=== PATIENT | female | born 1995 | race Caucasian/White ===

== ENCOUNTER 2017-04-30 16:39 | Emergency (ER) | payer BC, OTHER ==
[2017-04-30 16:52] VITALS: RESP 18; TEMP 98.6
--- NOTE | 2017-04-30 18:18 | EDPHY ---
H & P Stated Complaint: Migratory CP since Sunday Time Seen by Provider: 04/30/17 18:07 HPI/ROS: CHIEF COMPLAINT: Chest tightness, anxiety and paresthesias HISTORY OF PRESENT ILLNESS: Patient is a 21-year-old female who recently moved here from [place] who comes to the emergency department complaining of intermittent chest tightness, anxiety and palpitations. She states that these tend to last for about a minute and resolve with self calming techniques. She does not have any significant medical history. She denies shortness of breath. She does not smoke. She does not use any hormones. No recent travel or procedures. REVIEW OF SYSTEMS: Constitutional: denies: chills, fever, recent illness, recent injury EENTM: denies: blurred vision, double vision, nose congestion Respiratory: denies: cough, shortness of breath Cardiac: See HPI Gastrointestinal/Abdominal: denies: abdominal pain, diarrhea, nausea, vomiting, blood streaked stools Genitourinary: denies: dysuria, frequency, hematuria, pain Musculoskeletal: denies: joint pain, muscle pain Skin: denies: lesions, rash, jaundice, bruising Neurological: denies: headache, numbness, paresthesia, tingling, dizziness, weakness Hematologic/Lymphatic: denies: blood clots, easy bleeding, easy bruising Immunologic/allergic: denies: HIV/AIDS, transplant EXAM: GENERAL: Well-appearing, well-nourished and in no acute distress. HEAD: Atraumatic, normocephalic. EYES: Pupils equal round and reactive to light, extraocular movements intact, sclera anicteric, conjunctiva are normal. ENT: TMs normal, nares patent, oropharynx clear without exudates. Moist mucous membranes. NECK: Normal range of motion, supple without lymphadenopathy or JVD. LUNGS: Breath sounds clear to auscultation bilaterally and equal. No wheezes rales or rhonchi. HEART: Regular rate and rhythm without murmurs, rubs or gallops. ABDOMEN: Soft, nontender, normoactive bowel sounds. No guarding, no rebound. No masses appreciated. BACK: No CVA tenderness, no spinal tenderness, step-offs or deformities EXTREMITIES: Normal range of motion, no pitting or edema. No clubbing or cyanosis. NEUROLOGICAL: Cranial nerves II through XII grossly intact. Normal speech, normal gait. 5/5 strength, normal movement in all extremities, normal sensation PSYCH: Normal mood, normal affect. SKIN: Warm, dry, normal turgor, no visible rashes or lesions. Source: Patient Exam Limitations: No limitations - Personal History LMP (Females 10-55): 1-7 Days Ago Current Tetanus Diphtheria and Acellular Pertussis (TDAP): Yes - Medical/Surgical History Hx Asthma: No Hx Chronic Respiratory Disease: No Hx Diabetes: No Hx Cardiac Disease: No Hx Renal Disease: No Hx Cirrhosis: No Hx Alcoholism: No - Family History Significant Family History: No pertinent family hx - Social History Smoking Status: Current every day smoker Alcohol Use: Sober Drug Use: None Constitutional: Initial Vital Signs Temperature (C) 37 C 04/30/17 16:50 Heart Rate 80 04/30/17 16:50 Respiratory Rate 18 04/30/17 16:50 Blood Pressure 153/89 H 04/30/17 16:50 O2 Sat (%) 99 04/30/17 16:50 O2 Delivery Mode Room Air Allergies/Adverse Reactions: hydrocodone Allergy (Mild, Verified 04/30/17 16:53) GI upset Home Medications: Medication Instructions Recorded NK [No Known Home Meds] 04/30/17 Medical Decision Making - Diagnostics EKG Interpretation: An EKG obtained and was read and documented in trace view. Please see trace view for full reading and report. Sinus rhythm, no acute ischemic changes or arrhythmia ED Course/Re-evaluation: The patient is well appearing. She is young and healthy and has a normal physical exam. She feels that her symptoms are likely due to anxiety and I agree. She declined medications. We will obtain an EKG and if this is normal have her follow up with her regular physician in the next couple of days. 6:30 p.m. the patient is asking to have a blood sugar checked. Differential Diagnosis: Partial list of the Differential diagnosis considered include but were not limited to; anxiety, chest pain, palpitations and although unlikely based on the history and physical exam, I also considered ischemia, infection, PE. I discussed these differential diagnoses and the plan with the patient as well as the usual and expected course. The patient understands that the diagnosis is provisional and that in medicine we are not always correct and that further workup is often warranted. Usual and customary warnings were given. All of the patient's questions were answered. The patient was instructed to return to the emergency department should the symptoms at all worsen or return, otherwise to followup with the physician as we discussed. - Data Points Laboratory Results: 04/30/17 18:44 POC Hgb 17.0 gm/dL H gm/dL (12.6-16.3) POC Hct 50 % H % (38-47) POC Sodium 141 mEq/L mEq/L (134-144) POC Potassium 3.9 mEq/L mEq/L (3.3-5.0) POC Chloride 100 mEq/L mEq/L (97-110) POC BUN 15 mg/dL mg/dL (7-23) POC Creatinine 0.9 mg/dL mg/dL (0.6-1.0) POC Glucose 96 mg/dL mg/dL (70-100) Point of Care Test Results: 04/30/17 18:44 POC Sodium 141 POC Potassium 3.9 POC Chloride 100 POC BUN 15 POC Creatinine 0.9 POC Glucose 96 Departure - Departure Disposition: Home, Routine, Self-Care Clinical Impression: Anxiety Chest pain Qualifiers: Chest pain type: unspecified Qualified Code(s): R07.9 - Chest pain, unspecified Condition: Fair Instructions: Chest Pain (ED), Anxiety (ED) Referrals: NONE *PRIMARY CARE P,. [Primary Care Provider] - As per Instructions Ariela Ortiz MD [[facility] Primary Care Provider] - 2-3 days, call for appt.
--- NOTE | 2017-04-30 18:38 | CPEKG ---
Heart Rate: 68 RR Interval: 882 P-R Interval: 144 QRSD Interval: 80 QT Interval: 372 QTC Interval: 396 P Donaldson: 48 QRS Donaldson: 81 T Wave Donaldson: 29 EKG Severity - NORMAL ECG - EKG Impression: SINUS RHYTHM Electronically Signed By: Agustin Molina 30-Apr-2017 18:40:19
[2017-04-30 19:42] VITALS: BP 149/81; PULSE 84; O2SAT 98
== END 2017-04-30 19:42 | disposition home or self-care (01) ==
DX: R07.9 Chest pain, unspecified (principal); F41.9 Anxiety disorder, unspecified; F17.200 Nicotine dependence, unspecified, uncomplicated
CPT/HCPCS: 82947-QW

== ENCOUNTER 2017-11-12 19:31 | Emergency (ER) | payer BC, OTHER ==
--- NOTE | 2017-11-12 19:55 | EDPHY ---
H & P Stated Complaint: dehydrated Time Seen by Provider: 11/12/17 19:55 - Personal History LMP (Females 10-55): Now Current Tetanus/Diphtheria Vaccine: Yes Current Tetanus Diphtheria and Acellular Pertussis (TDAP): Yes - Medical/Surgical History Hx Asthma: No Hx Chronic Respiratory Disease: No Hx Diabetes: No Hx Cardiac Disease: No Hx Renal Disease: No Hx Cirrhosis: No Hx Alcoholism: No Hx HIV/AIDS: No Hx Splenectomy or Spleen Trauma: No - Social History Smoking Status: Current every day smoker Constitutional: Initial Vital Signs Temperature (C) 36.4 C 11/12/17 19:34 Heart Rate 74 11/12/17 19:34 Respiratory Rate 16 11/12/17 19:34 Blood Pressure 137/90 H 11/12/17 19:34 O2 Sat (%) 97 11/12/17 19:34 O2 Delivery Mode Room Air Allergies/Adverse Reactions: hydrocodone Allergy (Mild, Verified 04/30/17 16:53) GI upset Home Medications: Medication Instructions Recorded AZITHROMYCIN [Z-PACK] 250 mg PO DAILY #1 packet 11/12/17 AZITHROMYCIN [Z-PACK] 250 mg PO DAILY #1 packet 11/12/17 oxyCODONE IR [Oxycodone Ir (*)] 5 mg PO Q4-6PRN PRN #20 tab 11/12/17 Medical Decision Making - Diagnostics Imaging: I viewed and interpreted images myself ED Course/Re-evaluation: CHIEF COMPLAINT: Lightheaded, dehydrated, cough HISTORY OF PRESENT ILLNESS: The patient is a 21 y/o female arriving with her boyfriend complaining of a persistent cough for the last 3 weeks despite multiple antibiotics. She has associated nasal congestion, fever, vomiting, and general malaise. Today she started to feel lightheaded and thinks she is dehydrated. She completed a course of doxycycline then started amoxicillin 4 days ago. Recent flu swab was negative. She was also on prednisone over a week ago for back pain. She has continued to feel poor. REVIEW OF SYSTEMS: A 10 point review of systems was performed and is negative with the exception of the elements mentioned in the history of present illness. PHYSICAL EXAM: HR, BP, O2 Sat, RR. Temp noted General Appearance: Alert, well hydrated, appropriate, and non-toxic appearing. Head: Atraumatic without scalp tenderness or obvious injury Eyes: Pupils equal, round, reactive to light and accommodation, EOMI, no trauma , no injection. Ears: Clear bilaterally, no perforation, normal landmarks Nose: Atraumatic, no rhinorrhea, clear. Throat: There is no erythema or exudates, no lesions, normal tonsils, mucus membranes moist. Neck: Supple, nontender, no lymphadenopathy. Respiratory: No retractions, no distress, no wheezes, and no accessory muscle use. Coarse rhonchi throughout, decreased breath sounds on the left. Cardiovascular: Regular rate and rhythm, no murmurs, rubs, or gallops. Good capillary refill all extremities. Gastrointestinal: Abdomen is soft, nontender, non-distended, no masses, no rebound, no guarding, no peritoneal signs. Musculoskeletal: Normal active ROM of all extremities, atraumatic. Neurological: Alert, appropriate, and interactive. The patient has non-focal cranial nerves, motor, sensory, and cerebellar exam. Skin: No rashes, good turgor, no nodules on palpation. Past medical history: Denies Past surgical history: Denies Family history: Noncontributory Social history: Smoker. Employed. Boyfriend at bedside. DIAGNOSTICS/PROCEDURES/CRITICAL CARE TIME: Chest x-ray: Bronchitis DIFFERENTIAL DIAGNOSIS: The differential diagnosis for the patient's fever included but was not limited to pneumonia, urinary tract infection, viral syndrome, meningitis, and sepsis. MEDICAL DECISION MAKING: This is a normally healthy 21 y/o female who presents with a 3-week history of a cough with nasal congestion, fever, and myalgias. She has coarse rhonchi throughout all lung bustillo and decreased breath sounds on the left, which could represent a pneumonia. Plan for duo neb, 10mg IV Decadron, and chest x-ray. Chest x-ray shows bronchitis. She will be discharged with OxyIR for cough and azithromycin. Advised to discontinue amoxicillin and follow up with PCP for unimproved symptoms. She is comfortable with this plan. - Data Points Medications Given: Discontinued Medications Albuterol/Ipratropium (Duoneb) 3 ml IH EDNOW ONE Stop: 11/12/17 20:01 Last Admin: 11/12/17 20:07 Dose: 3 ml Dexamethasone (Decadron Injection) 10 mg PO EDNOW ONE Stop: 11/12/17 20:02 Last Admin: 11/12/17 20:07 Dose: 10 mg Departure - Departure Disposition: Home, Routine, Self-Care Clinical Impression: Bronchitis Condition: Good Instructions: Azithromycin (By mouth), Acute Bronchitis (ED) Additional Instructions: 1. Discontinue amoxicillin. Take azithromycin as prescribed. Be sure to complete the entire prescription. 2. Use OxyIR as prescribed as needed for pain and cough. This medication will make you drowsy. Do not use it while driving or operating machinery. 3. Follow up with your primary care provider for unimproved symptoms over the next few days. Referrals: Jenna Atkinson MD [Medical Doctor] - As per Instructions [facility],. [Clinic] - As per Instructions Prescriptions: AZITHROMYCIN [Z-PACK] 250 mg PO DAILY #1 packet AZITHROMYCIN [Z-PACK] 250 mg PO DAILY #1 packet oxyCODONE IR [Oxycodone Ir (*)] 5 mg PO Q4-6PRN PRN #20 tab PRN Reason: Cough, Severe Report Scribed for: Bradford Ayoub Report Scribed by: Asuncion Blair Date of Report: 11/12/17 Time of Report: 20:03
[2017-11-12] MEDS ORDERED: IPRATROPIUM/ALBUTEROL 3 ML DEYVIAL IH ONE (20:00)
[2017-11-12] MEDS ORDERED: DEXAMETHASONE 10 MG/ML VIAL PO ONE (20:01)
[2017-11-12] MEDS ORDERED: AZITHROMYCIN 250 MG TAB PO ONE (20:12)
[2017-11-12 20:33] VITALS: BP 148/92; PULSE 77; RESP 18; TEMP 98.4; O2SAT 94
== END 2017-11-12 20:35 | disposition home or self-care (01) ==
DX: J20.9 Acute bronchitis, unspecified (principal); F17.200 Nicotine dependence, unspecified, uncomplicated
CPT/HCPCS: J1100

== ENCOUNTER 2018-11-28 06:00 | Inpatient (IN) | payer BC, OTHER ==
[2018-11-28] MEDS ORDERED: OLIVE OIL 118 ML BTL MISC PRN (07:33)
[2018-11-28] MEDS ORDERED: IBUPROFEN 600 MG TAB PO PRN (07:33)
[2018-11-28] MEDS ORDERED: LR 1,000 ML IV PRN (07:33)
[2018-11-28] MEDS ORDERED: EPSOM SALT 454 GM TP PRN (07:33)
[2018-11-28] MEDS ORDERED: MISOPROSTOL 200 MCG TAB PR PRN (07:33)
[2018-11-28] MEDS ORDERED: LIDOCAINE 1% 300 MG/30 ML SDV SC PRN (07:33)
[2018-11-28] MEDS ORDERED: OXYTOCIN/RINGERS LACTATE 1,000 ML IV PRN (07:33)
[2018-11-28] MEDS ORDERED: PENICILLIN G POTASSIUM 5,000,000 UNIT in D5W 150 ML IV ONE (07:33)
[2018-11-28] MEDS ORDERED: LIDOCAINE 1% 300 MG/30 ML SDV ONE (07:41)
[2018-11-28] MEDS ORDERED: MISOPROSTOL 200 MCG TAB ONE (07:42)
[2018-11-28] MEDS ORDERED: TERBUTALINE SULFATE 1 MG/ML VIAL ONE (07:42)
[2018-11-28] MEDS ORDERED: OLIVE OIL 118 ML BTL ONE (07:42)
[2018-11-28] MEDS ORDERED: OXYTOCIN 10 UNIT/ML VIAL ONE (07:42)
[2018-11-28] MEDS ORDERED: AMMONIA AROMATIC 1 EACH AMP IH ONE (07:42)
[2018-11-28 08:02] LABS: PLATELET COUNT 173 10^3/uL (150-400)
[2018-11-28] MEDS ORDERED: LR 500 ML IV PRN ×2 (08:23→08:34)
[2018-11-28] MEDS ORDERED: OXYTOCIN/RINGERS LACTATE 500 ML IV SCH (09:00)
--- NOTE | 2018-11-28 11:38 | GHP ---
[f rep st] PREOP HISTORY AND PHYSICAL DATE OF ADMISSION: 11/28/2018 ADMISSION DIAGNOSES: 1. Intrauterine at 40 and 4/7 weeks' gestation. 2. Here for elective induction of labor. 3. Group beta strep positive. HISTORY OF PRESENT ILLNESS: Patient is a 22-year-old, 1, para 0, whose estimated date of confinement is 11/24/2018, consistent with an 8-week ultrasound. Patient initiated care at [facility] at 8 weeks 2 days, and she had recently moved to [place] and did temporarily moved back from [place] at 37 weeks gestation. She received the majority of her care in [place] and resumed care at [facility] at 37 weeks gestation. Her was uncomplicated. Patient had daily marijuana use in the beginning of and was advised to stop. Otherwise, was uncomplicated. She tested positive for group beta strep at 36 weeks gestation. MEDICAL HISTORY: Significant for anxiety, history of esophageal ulcer. MEDICATIONS: vitamins, DHE, Benadryl as needed. SURGICAL HISTORY: Hand ganglion cyst. ALLERGIES: No known drug allergies. SOCIAL HISTORY: Patient denies tobacco, alcohol, or drug use. She did use daily marijuana until positive test, she quit in . FAMILY MEDICAL HISTORY: Noncontributory. 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 ]She denies any history of abnormal Pap smears or sexually transmitted diseases. PHYSICAL EXAMINATION: VITAL SIGNS: Stable. GENERAL APPEARANCE: Alert and oriented x3. MUSCULOSKELETAL: Grossly intact. PSYCH: Grossly intact. NEURO : Grossly intact. HEART: Regula. LUNGS: Clear to auscultation bilaterally. ABDOMEN: Gravid, nondistended, nontender. EXTREMITIES: Reveal no calf tenderness or edema. PELVIC: She was 3 cm dilated, 95% effaced, and -2 station in the office. in the vertex presentation. LABS: Blood type O positive. Antibody screen negative. Rubella immune. GBS positive. HBsAg negative. I do not have a copy of her glucose tolerance test today. REVIEW OF SYSTEMS: 10-point review of systems is negative. There is positive movement. No loss of fluid. ASSESSMENT/PLAN: 22-year-old, 1, para 0, at 40 and 4/7 weeks' gestation here for induction of labor. She has been started on antibiotics for group B Streptococcus positive and Pitocin for induction of labor. She will be managed expectantly. /[id number]/MODL MTDD
--- NOTE | 2018-11-28 11:53 | OBPROG ---
Labor Progress Note Assessment/Plan: Assessment: Plan: Subjective/Intrapartum Course: 11/28/18 11:51 patient is still comfortable. pitocin is at 10 mu. arom. large amount of clear fluid. status is reassuring. Objective: 11/28/18 07:00 Patient ABO/Rh O POSITIVE 11/28/18 07:00 - SVE Dilation (cm): 4 Effacement (%): 90 Station: -1 Membranes: AROM Amniotic Fluid Color: Clear - Contraction Pattern Assessment Current Contraction Pattern: Regular - Procedures Non-surgical Procedures: Amniotomy - AP Antepartum Course: 11/28/18 11:52 initiated care at [facility] at 8 weeks. returned to [place] from 11-37 weeks[address] care with [facility] at 37 weeks. gbs positive. desired induction for post due date. favorable cervix. Oxytocin Orders Assessment - Pre-Induction/Augmentation Assessment Gestational Age: 40 week(s) and 4 day(s) ICD10 Worksheet Patient Problems: Problems Problem Status Onset Normal labor Acute Status post vacuum-assisted vaginal delivery Acute
[2018-11-28] MEDS: PENICILLIN G POTASSIUM 2,500,000 UNIT in D5W 150 ML IV SCH ×3 (12:10→20:42)
[2018-11-28] MEDS ORDERED: fentaNYL 2MCG/ML/BUP 0.1% RTU 100 ML BAG EP ONE ×2 (13:04→21:41)
[2018-11-28] MEDS ORDERED: PHENYLEPHRINE HCL 100 MCG/ML SYR ONE (13:04)
[2018-11-28] MEDS ORDERED: METOCLOPRAMIDE 10 MG/2 ML VIAL IVP PRN (13:29)
[2018-11-28] MEDS ORDERED: ONDANSETRON 4 MG/2 ML VIAL IVP PRN (13:29)
[2018-11-28] MEDS ORDERED: NALOXONE HCL 0.4 MG/ML INJ IVP PRN (13:29)
[2018-11-28] MEDS ORDERED: PHENYLEPHRINE HCL 100 MCG/ML SYR IVP PRN (13:29)
--- NOTE | 2018-11-28 13:29 | PREANESOB ---
Obstetric Pre-Anesthesia Info - General Info Proposed Procedure: TAMAR : 1 Para: 0 PRACHI: 11/24/18 Gestational Age: 40 week(s) and 4 day(s) - Info Status: Full Term Monitors: External FHR Pattern: Reassuring - Labor Status Cervical Dilation per last OB SVE: 4 Station per last OB SVE: -1 Amniotic Fluid Color: Clear Pitocin: In Use PIH: No Magnesium Sulfate in Use: No Indications for Labor Analgesia: Pain Control Labor Epidural: Proposed Anesthesia Allergies/Adverse Reactions: Allergy/AdvReac Type Severity Reaction Status Date / Time hydrocodone Allergy Mild GI upset Verified 04/30/17 16:53 Home Medications: Medication Instructions Recorded AZITHROMYCIN [Z-PACK] 250 mg PO DAILY #1 packet 11/12/17 AZITHROMYCIN [Z-PACK] 250 mg PO DAILY #1 packet 11/12/17 oxyCODONE IR [Oxycodone Ir (*)] 5 mg PO Q4-6PRN PRN #20 tab 11/12/17 Visit Medications: Generic Name Dose Route Start Last Admin Trade Name Freq PRN Reason Stop Dose Admin Lactated Ringer's 1,000 mls @ 0 mls/hr 11/28/18 07:33 11/28/18 08:02 Lr IV 11/29/18 07:32 1,000 mls PRN PRN Administration SEE PROTOCOL CONDITIONS Protocol Per Protocol Oxytocin/Lactated Ringer's 1,000 mls @ 125 mls/hr 11/28/18 07:33 Pitocin 20 Units/Lr (Premix) IV PRN PRN Post bleeding Penicillin G Potassium 2,500, 155 mls @ 155 mls/hr 11/28/18 11:35 11/28/18 12 :10 000 unit/ Dextrose IV 12/28/18 11:34 155 mls Q4H ELLIOTT Administration Protocol Lactated Ringer's 500 mls @ 500 mls/hr 11/28/18 08:23 Lr IV 11/29/18 08:26 PRN PRN Maternal Hypotension Lactated Ringer's 500 mls @ 500 mls/hr 11/28/18 08:34 Lr IV 11/29/18 08:34 PRN PRN Maternal Hypotension Oxytocin/Lactated Ringer's 500 mls @ 0 mls/hr 11/28/18 09:00 11/28/18 08:35 Pitocin 30 Units/Lr (Premix) IV 05/27/19 08:59 500 mls CONT ELLIOTT Administration Protocol Per Protocol Ibuprofen 600 mg 11/28/18 07:33 Motrin PO ONCE PRN post , pain Lidocaine HCl 300 mg 11/28/18 07:33 Lidocaine Hcl 1% SC 05/27/19 07:32 ONCE PRN episiotomy Magnesium Sulfate 454 gm 11/28/18 07:33 Epsom Salt TP 05/27/19 07:32 Q1H PRN perineal discomfort Misoprostol 800 - 1,000 mcg 11/28/18 07:33 Cytotec AZ ONCE PRN Vaginal Atony/Bleeding Kyle Oil 118 ml 11/28/18 07:33 Sweet Oil MISC 05/27/19 07:32 ONCE PRN perineal massage Discontinued Medications Generic Name Dose Route Start Last Admin Trade Name Freq PRN Reason Stop Dose Admin Ammonia (Aromatic Spirit) Confirm 11/28/18 07:42 Ammonia Aromatic Administered 11/28/18 07:43 Dose 1 each IH .STK-MED ONE Fentanyl/Bupivacaine HCl Confirm 11/28/18 13:04 Fentanyl/Bupivacaine/Ns 2 Mcg/Ml 0.1% (Premix Administered 11/28/18 13:05 Dose 100 ml EP .STK-MED ONE Penicillin G Potassium 5,000, 160 mls @ 160 mls/hr 11/28/18 07:33 11/28/18 08 :02 000 unit/ Dextrose IV 11/28/18 08:32 160 mls ONCE ONE Administration Protocol Lidocaine HCl Confirm 11/28/18 07:41 Lidocaine Hcl 1% Administered 11/28/18 07:42 Dose 300 mg .ROUTE .STK-MED ONE Misoprostol Confirm 11/28/18 07:42 Cytotec Administered 11/28/18 07:43 Dose 1,000 mcg .ROUTE .STK-MED ONE Kyle Oil Confirm 11/28/18 07:42 Sweet Oil Administered 11/28/18 07:43 Dose 118 ml .ROUTE .STK-MED ONE Oxytocin Confirm 11/28/18 07:42 Pitocin Administered 11/28/18 07:43 Dose 40 unit .ROUTE .STK-MED ONE Phenylephrine HCl Confirm 11/28/18 13:04 Neosynephrine Administered 11/28/18 13:05 Dose 1,000 mcg .ROUTE .STK-MED ONE Terbutaline Sulfate Confirm 11/28/18 07:42 Brethine Administered 11/28/18 07:43 Dose 1 mg .ROUTE .STK-MED ONE - Anesthesia History Response to Local Anesthetics: Not Applicable Anesthesia & Operative History: No Prior Problems Family Anesthesia History: Not Applicable - Social History Substance Use/Abuse: Denies - Vital Signs Height/Weight (Nursing): Height 165.1 cm Weight 98.883 kg - Focused Exam Neck exam: FROM Mallampati Score: Class 2 Mouth exam: normal dental/mouth exam Pulmonary: no respiratory distress Cardiovascular: regular rate and rhythym Labs: 11/28/18 07:00 Patient ABO/Rh O POSITIVE 11/28/18 07:00 - Plan Consent Signed and on Chart: Yes Patient/Guardian Understands and Agrees to Plan: Yes Urgent/Emergent Case: Conner cartagena completed preop but documented later for safe timely pt care
--- NOTE | 2018-11-28 13:29 | POSTANESTH ---
Post Anesthetic Evaluation Cardiovascular Status: Normal, Stable Respiratory Status: Normal, Stable Level of Consciousness/Mental Status: Can Participate in Eval, Alert and Oriented Pain Control: Adequate, Prn Tx Ordered Nausea/Vomiting Control: Adequate, Prn Tx Ordered Complications Possibly Related to Anesthesia: None Noted
[2018-11-28] MEDS ORDERED: LR 500 ML IV SCH (13:30)
--- NOTE | 2018-11-28 15:11 | OBPROG ---
Labor Progress Note Assessment/Plan: Assessment: Plan: Subjective/Intrapartum Course: 11/28/18 11:51 patient is still comfortable. pitocin is at 10 mu. arom. large amount of clear fluid. status is reassuring. 11/28/18 15:07 patient had significantly increased pain with contractions after arom and tried to labor in the tub but got out after three contractions. requested nitrous and used for a few minutes but did not provide enough pain relief so requested and received an epidural. patient resting comfortably but doesnt like her legs being so numb. pitocin was decreased due to frequency of contractions. no change in cervix. discussed IUPC. patient agreeable to having placed. placed without difficulty. contractions no adequate. pitocin increased to 10 mu. will continue position changes and increasing pitocin until adequate. status reassuring. Objective: 11/28/18 07:00 Patient ABO/Rh O POSITIVE 11/28/18 07:00 - SVE Dilation (cm): 3 Effacement (%): 90 Station: -1 Membranes: AROM Amniotic Fluid Color: Clear - Contraction Pattern Assessment Current Contraction Pattern: Regular - Procedures Non-surgical Procedures: Amniotomy, IUPC - AP Antepartum Course: 11/28/18 11:52 initiated care at [facility] at 8 weeks. returned to [place] from 11-37 weeks. resumed care with [facility] at 37 weeks. gbs positive. desired induction for post due date. favorable cervix. Oxytocin Orders Assessment - Pre-Induction/Augmentation Assessment Gestational Age: 40 week(s) and 4 day(s) ICD10 Worksheet Patient Problems: Problems Problem Status Onset Normal labor Acute
[2018-11-28] MEDS ORDERED: CALCIUM CARBONATE 500 MG CHEWABLE TAB PO ONE (16:30)
--- NOTE | 2018-11-28 18:00 | OBPROG ---
Labor Progress Note Assessment/Plan: Assessment: Plan: Subjective/Intrapartum Course: 11/28/18 11:51 patient is still comfortable. pitocin is at 10 mu. arom. large amount of clear fluid. status is reassuring. 11/28/18 15:07 patient had significantly increased pain with contractions after arom and tried to labor in the tub but got out after three contractions. requested nitrous and used for a few minutes but did not provide enough pain relief so requested and received an epidural. patient resting comfortably but doesnt like her legs being so numb. pitocin was decreased due to frequency of contractions. no change in cervix. discussed IUPC. patient agreeable to having placed. placed without difficulty. contractions no adequate. pitocin increased to 10 mu. will continue position changes and increasing pitocin until adequate. status reassuring. 11/28/18 17:57 patient is still comfortable. able to feel legs more. IUPC was no effectively tracing. was flushed and checked to make sure it was in the correct position. pitocin is at 18. i just examined patient who is now 5 cm/ 90/-1. positioned into hands and knees. will recheck in an hour and if no change will replace IUPC and reassess pitocin. status reassuring Objective: 11/28/18 07:00 Patient ABO/Rh O POSITIVE 11/28/18 07:00 - SVE Dilation (cm): 5 Effacement (%): 100 Station: -1 Membranes: AROM Amniotic Fluid Color: Clear - Contraction Pattern Assessment Current Contraction Pattern: Regular - Procedures Non-surgical Procedures: Amniotomy, IUPC - AP Antepartum Course: 11/28/18 11:52 initiated care at [facility] at 8 weeks. returned to [place] from 11-37 weeks. resumed care with [facility] at 37 weeks. gbs positive. desired induction for post due date. favorable cervix. Oxytocin Orders Assessment - Pre-Induction/Augmentation Assessment Gestational Age: 40 week(s) and 4 day(s) ICD10 Worksheet Patient Problems: Problems Problem Status Onset Normal labor Acute
--- NOTE | 2018-11-28 20:20 | OBPROG ---
Labor Progress Note Assessment/Plan: Assessment: Plan: Subjective/Intrapartum Course: 11/28/18 11:51 patient is still comfortable. pitocin is at 10 mu. arom. large amount of clear fluid. status is reassuring. 11/28/18 15:07 patient had significantly increased pain with contractions after arom and tried to labor in the tub but got out after three contractions. requested nitrous and used for a few minutes but did not provide enough pain relief so requested and received an epidural. patient resting comfortably but doesnt like her legs being so numb. pitocin was decreased due to frequency of contractions. no change in cervix. discussed IUPC. patient agreeable to having placed. placed without difficulty. contractions no adequate. pitocin increased to 10 mu. will continue position changes and increasing pitocin until adequate. status reassuring. 11/28/18 17:57 patient is still comfortable. able to feel legs more. IUPC was no effectively tracing. was flushed and checked to make sure it was in the correct position. pitocin is at 18. i just examined patient who is now 5 cm/ 90/-1. positioned into hands and knees. will recheck in an hour and if no change will replace IUPC and reassess pitocin. status reassuring 11/28/18 19:15 pitocin is at 18 mu. IUPC replaced to see if difficulty tracing is related to the existing IUPC. contractions continue to be intermittently distinct and other times very flat with possible higher baseline. per rn not palpating strong. - . status reassuring. Will try flushing iupc and rezeroing. if no improvement will try external monitor and continue palpation. long discussion with patient and father of baby about monitoring contractions and risk of high dose pitocin vs lack of cervical change due to inadequate contractions. sve just done. slight cervical change. to 6/100/-1. Baby appears to be in ROT to MARIE. status reassuring. trying multiple position changes. will increase pitocin to a max of 24 with close observation and palpation of contractions. Objective: 11/28/18 07:00 Patient ABO/Rh O POSITIVE 11/28/18 07:00 - SVE Dilation (cm): 6 Effacement (%): 100 Station: -1 Membranes: AROM Amniotic Fluid Color: Clear - Contraction Pattern Assessment Current Contraction Pattern: Regular - Procedures Non-surgical Procedures: Amniotomy, IUPC - AP Antepartum Course: 11/28/18 11:52 initiated care at [facility] at 8 weeks. returned to [place] from 11-37 weeks. resumed care with [facility] at 37 weeks. gbs positive. desired induction for post due date. favorable cervix. Oxytocin Orders Assessment - Pre-Induction/Augmentation Assessment Gestational Age: 40 week(s) and 4 day(s) ICD10 Worksheet Patient Problems: Problems Problem Status Onset Normal labor Acute
[2018-11-28] MEDS ORDERED: PROPRANOLOL HCL 1 MG/ML VIAL IV ONE (21:16)
--- NOTE | 2018-11-28 21:45 | OBPROG ---
Labor Progress Note Assessment/Plan: Assessment: Plan: Subjective/Intrapartum Course: 11/28/18 11:51 patient is still comfortable. pitocin is at 10 mu. arom. large amount of clear fluid. status is reassuring. 11/28/18 15:07 patient had significantly increased pain with contractions after arom and tried to labor in the tub but got out after three contractions. requested nitrous and used for a few minutes but did not provide enough pain relief so requested and received an epidural. patient resting comfortably but doesnt like her legs being so numb. pitocin was decreased due to frequency of contractions. no change in cervix. discussed IUPC. patient agreeable to having placed. placed without difficulty. contractions no adequate. pitocin increased to 10 mu. will continue position changes and increasing pitocin until adequate. status reassuring. 11/28/18 17:57 patient is still comfortable. able to feel legs more. IUPC was no effectively tracing. was flushed and checked to make sure it was in the correct position. pitocin is at 18. i just examined patient who is now 5 cm/ 90/-1. positioned into hands and knees. will recheck in an hour and if no change will replace IUPC and reassess pitocin. status reassuring 11/28/18 19:15 pitocin is at 18 mu. IUPC replaced to see if difficulty tracing is related to the existing IUPC. contractions continue to be intermittently distinct and other times very flat with possible higher baseline. per rn not palpating strong. - . status reassuring. Will try flushing iupc and rezeroing. if no improvement will try external monitor and continue palpation. long discussion with patient and father of baby about monitoring contractions and risk of high dose pitocin vs lack of cervical change due to inadequate contractions. sve just done. slight cervical change. to 6/100/-1. Baby appears to be in ROT to MARIE. status reassuring. trying multiple position changes. will increase pitocin to a max of 24 with close observation and palpation of contractions. 11/28/18 21:42 patient feeling more pressure. sve per rn 8-9/100/0 multiple positions attempted. patient now in high fowlers. contractions still appear to be flattened. will try 2mg propranolol slow iv push and continued close observation. status reassuring. Objective: 11/28/18 07:00 Patient ABO/Rh O POSITIVE 11/28/18 07:00 - SVE Dilation (cm): 8, 9 Effacement (%): 100 Station: 0 Membranes: AROM Amniotic Fluid Color: Clear - Contraction Pattern Assessment Current Contraction Pattern: Regular - FHR Assessment Melendez FHR Pattern Variability: Moderate FHR Category: 1 - Procedures Non-surgical Procedures: Amniotomy, IUPC - AP Antepartum Course: 11/28/18 11:52 initiated care at [facility] at 8 weeks. returned to [place] from 11-37 weeks. resumed care with [facility] at 37 weeks. gbs positive. desired induction for post due date. favorable cervix. Oxytocin Orders Assessment - Pre-Induction/Augmentation Assessment Gestational Age: 40 week(s) and 4 day(s) ICD10 Worksheet Patient Problems: Problems Problem Status Onset Normal labor Acute
[2018-11-28] MEDS ORDERED: fentaNYL 200 MCG, BUPIVACAINE 0.5% 20 ML in NS 100 ML EP SCH (22:00)
--- NOTE | 2018-11-28 22:28 | OBPROG ---
Labor Progress Note Assessment/Plan: Assessment: Plan: Subjective/Intrapartum Course: 11/28/18 11:51 patient is still comfortable. pitocin is at 10 mu. arom. large amount of clear fluid. status is reassuring. 11/28/18 15:07 patient had significantly increased pain with contractions after arom and tried to labor in the tub but got out after three contractions. requested nitrous and used for a few minutes but did not provide enough pain relief so requested and received an epidural. patient resting comfortably but doesnt like her legs being so numb. pitocin was decreased due to frequency of contractions. no change in cervix. discussed IUPC. patient agreeable to having placed. placed without difficulty. contractions no adequate. pitocin increased to 10 mu. will continue position changes and increasing pitocin until adequate. status reassuring. 11/28/18 17:57 patient is still comfortable. able to feel legs more. IUPC was no effectively tracing. was flushed and checked to make sure it was in the correct position. pitocin is at 18. i just examined patient who is now 5 cm/ 90/-1. positioned into hands and knees. will recheck in an hour and if no change will replace IUPC and reassess pitocin. status reassuring 11/28/18 19:15 pitocin is at 18 mu. IUPC replaced to see if difficulty tracing is related to the existing IUPC. contractions continue to be intermittently distinct and other times very flat with possible higher baseline. per rn not palpating strong. - . status reassuring. Will try flushing iupc and rezeroing. if no improvement will try external monitor and continue palpation. long discussion with patient and father of baby about monitoring contractions and risk of high dose pitocin vs lack of cervical change due to inadequate contractions. sve just done. slight cervical change. to 6/100/-1. Baby appears to be in ROT to MARIE. status reassuring. trying multiple position changes. will increase pitocin to a max of 24 with close observation and palpation of contractions. 11/28/18 21:42 patient feeling more pressure. sve per rn 8-9/100/0 multiple positions attempted. patient now in high fowlers. contractions still appear to be flattened. will try 2mg propranolol slow iv push and continued close observation. status reassuring. 11/28/18 22:27 patient feeling much more pressure. sve 9/100/0. bolus button pushed. will continue to monitor and begin pushing when complete. Objective: 11/28/18 07:00 Patient ABO/Rh O POSITIVE 11/28/18 07:00 Temp Pulse Resp BP Pulse Ox 87 142/85 H 11/28/18 21:49 11/28/18 21:49 - SVE Dilation (cm): 9 Effacement (%): 100 Station: 0 Membranes: AROM Amniotic Fluid Color: Clear - Contraction Pattern Assessment Current Contraction Pattern: Regular - Procedures Non-surgical Procedures: Amniotomy, IUPC - AP Antepartum Course: 11/28/18 11:52 initiated care at [facility] at 8 weeks. returned to [place] from 11-37 weeks. resumed care with [facility] at 37 weeks. gbs positive. desired induction for post due date. favorable cervix. Oxytocin Orders Assessment - Pre-Induction/Augmentation Assessment Gestational Age: 40 week(s) and 4 day(s) ICD10 Worksheet Patient Problems: Problems Problem Status Onset Normal labor Acute
[2018-11-29] MEDS: PENICILLIN G POTASSIUM 2,500,000 UNIT in D5W 150 ML IV SCH (00:42)
[2018-11-29] MEDS ORDERED: HYDROCORTISONE 0.5% CREAM TP PRN (03:49)
[2018-11-29] MEDS ORDERED: oxyCODONE IR 5 MG TAB PO PRN (03:49)
--- NOTE | 2018-11-29 03:54 | OBDEL ---
Info Type: Vaginal Presentation at Delivery: Vertex L&D Analgesia/Anesthesia Type: Epidural GBS+: Yes Antibiotic Used for + GBS: Ampicillin Intrapartum Medications: Generic Name Dose Route Start Last Admin Trade Name Freq PRN Reason Stop Dose Admin Lactated Ringer's 1,000 mls @ 0 mls/hr 11/28/18 07:33 11/28/18 08:02 Lr IV 11/29/18 07:32 1,000 mls PRN PRN Administration SEE PROTOCOL CONDITIONS Protocol Per Protocol Penicillin G Potassium 2,500, 155 mls @ 155 mls/hr 11/28/18 11:35 11/29/18 00 :42 000 unit/ Dextrose IV 12/28/18 11:34 155 mls Q4H ELLIOTT Administration Protocol Oxytocin/Lactated Ringer's 500 mls @ 0 mls/hr 11/28/18 09:00 11/28/18 08:35 Pitocin 30 Units/Lr (Premix) IV 05/27/19 08:59 500 mls CONT ELLIOTT Administration Protocol Per Protocol Ondansetron HCl 4 mg 11/28/18 13:29 11/28/18 20:29 Zofran IVP 11/29/18 13:28 4 mg Q4HRS PRN Administration Nausea/Vomiting, Can't Take PO Discontinued Medications Generic Name Dose Route Start Last Admin Trade Name Mag PRN Reason Stop Dose Admin Calcium Carbonate 500 - 1,000 mg 11/28/18 16:30 11/28/18 16:32 Tums PO 11/28/18 16:31 1,000 mg ONCE ONE Administration Penicillin G Potassium 5,000, 160 mls @ 160 mls/hr 11/28/18 07:33 11/28/18 08 :02 000 unit/ Dextrose IV 11/28/18 08:32 160 mls ONCE ONE Administration Protocol Propranolol HCl 2 mg 11/28/18 21:16 11/28/18 21:49 Inderal Injection IV 11/28/18 21:17 2 mg ONCE ONE Administration - Hospital Course Intrapartum: 11/28/18 11:51 patient is still comfortable. pitocin is at 10 mu. arom. large amount of clear fluid. status is reassuring. 11/28/18 15:07 patient had significantly increased pain with contractions after arom and tried to labor in the tub but got out after three contractions. requested nitrous and used for a few minutes but did not provide enough pain relief so requested and received an epidural. patient resting comfortably but doesnt like her legs being so numb. pitocin was decreased due to frequency of contractions. no change in cervix. discussed IUPC. patient agreeable to having placed. placed without difficulty. contractions no adequate. pitocin increased to 10 mu. will continue position changes and increasing pitocin until adequate. status reassuring. 11/28/18 17:57 patient is still comfortable. able to feel legs more. IUPC was no effectively tracing. was flushed and checked to make sure it was in the correct position. pitocin is at 18. i just examined patient who is now 5 cm/ 90/-1. positioned into hands and knees. will recheck in an hour and if no change will replace IUPC and reassess pitocin. status reassuring 11/28/18 19:15 pitocin is at 18 mu. IUPC replaced to see if difficulty tracing is related to the existing IUPC. contractions continue to be intermittently distinct and other times very flat with possible higher baseline. per rn not palpating strong. - . status reassuring. Will try flushing iupc and rezeroing. if no improvement will try external monitor and continue palpation. long discussion with patient and father of baby about monitoring contractions and risk of high dose pitocin vs lack of cervical change due to inadequate contractions. sve just done. slight cervical change. to 6/100/-1. Baby appears to be in ROT to MARIE. status reassuring. trying multiple position changes. will increase pitocin to a max of 24 with close observation and palpation of contractions. 11/28/18 21:42 patient feeling more pressure. sve per rn 8-9/100/0 multiple positions attempted. patient now in high fowlers. contractions still appear to be flattened. will try 2mg propranolol slow iv push and continued close observation. status reassuring. 11/28/18 22:27 patient feeling much more pressure. sve 9/100/0. bolus button pushed. will continue to monitor and begin pushing when complete. Indications for Delivery: Elective Vaginal Delivery - Delivery Provider Delivery Physician/CNM: Viv Paz - Labor and Delivery Onset of Contractions Date: 11/28/18 Onset of Contractions Time: 11:30 Onset of Contractions Type: Induced Rupture of Membranes Date: 11/29/18 Rupture of Membranes Time: 11:47 Rupture of Membranes Type: Artificial Amniotic Fluid Color: Clear Dilation Complete Date: 11/29/18 Dilation Complete Time: 00:55 Placenta Delivery Date: 11/29/18 Placenta Delivery Time: 03:20 (marginal cord insertion) Total Hours of Labor: 15 Non-surgical Procedures: Amniotomy, IUPC Laceration: 1st Degree Repair: 3-0, Other (Specify) (right dilated vessel vs hematoma did not expand.) Vaginal Sponge Count Correct: Yes Vaginal Needle Count Correct: Yes Vaginal Sweep Performed: No EBL: 300 Cord Gases: Cord Gases Cord Blood PCO2 55 mmHg (37-60) 11/29/18 02:15 Cord Base Excess -7.1 mEq/L (-13.6--3.2) 11/29/18 02:15 Cord ABG pH 7.22 (7.10-7.37) 11/29/18 02:15 Cord VBG pH 7.26 (7.20-7.42) 11/29/18 02:15 - Medications Labor Augmentation/Induction Methods Used: Pitocin Labor Augmentation/Induction Indication: Post Dates, Other (Specify) Operative Report - Delivery Cord Gases: Cord Gases Cord Blood PCO2 55 mmHg (37-60) 11/29/18 02:15 Cord Base Excess -7.1 mEq/L (-13.6--3.2) 11/29/18 02:15 Cord ABG pH 7.22 (7.10-7.37) 11/29/18 02:15 Cord VBG pH 7.26 (7.20-7.42) 11/29/18 02:15 Assissted Delivery Station: +3 Pulls (Total): 1 Assisted Delivery Comment: delivered head under pubic bone with one pull. then vacuum off and patient delivered baby with next push [place] Data PRACHI: 11/24/18 Gestational Age: 40 week(s) and 5 day(s) Melendez Delivery Date: 11/29/18 Delivery Time: 03:15 Sex of Infant: Male Score (1 Min): 7 Score (5 Min): 9 ICD10 Worksheet Patient Problems: Problems Problem Status Onset Normal labor Acute
[2018-11-29] MEDS: IBUPROFEN 600 MG TAB PO PRN ×3 (10:00→21:38)
--- NOTE | 2018-11-29 10:46 | OBPP ---
Progress Note Assessment/Plan: Assessment: 21 y/o PPD #0 s/p vacuum assisted vaginal delivery Plan: Check Hct tomorrow am. support and routine PPC. 11/29/18 10:47 Subjective/ Course: 11/29/18 10:38 Pt is doing ok this am. She is very tired and having cramping but otherwise controlled with PO Ibuprofen. She is working on breast feeding. She ambulated once and had mod lochia. Objective: 11/28/18 07:00 Patient ABO/Rh O POSITIVE 11/28/18 07:00 Temp Pulse Resp BP Pulse Ox 36.6 C 73 15 111/58 L 96 11/29/18 08:10 11/29/18 08:10 11/29/18 08:10 11/29/18 08:10 11/29/18 08:10 Uterine Position/Fundal Height: Umbilicus -2 Uterine Tone: Firm Physical Exam - Physical Exam General Appearance: alert, no apparent distress Neck: non-tender, full range of motion, supple Respiratory: chest non-tender, lungs clear, normal breath sounds Cardiac/Chest: regular rate, rhythm Abdomen: normal bowel sounds Extremities: swelling (no), Jordyn's sign (neg)
[2018-11-29] MEDS: ACETAMINOPHEN 325 MG TAB PO PRN ×2 (15:25→21:39)
[2018-11-29] MEDS: DOCUSATE SODIUM 100 MG CAP PO PRN (21:36)
[2018-11-30] MEDS: IBUPROFEN 600 MG TAB PO PRN ×3 (03:35→15:34)
[2018-11-30] MEDS: ACETAMINOPHEN 325 MG TAB PO PRN ×3 (03:36→15:34)
[2018-11-30] MEDS: PENICILLIN G POTASSIUM 2,500,000 UNIT in D5W 150 ML IV SCH (07:04)
--- NOTE | 2018-11-30 08:21 | POSTANESTH ---
Post Anesthetic Evaluation Cardiovascular Status: Normal, Stable Respiratory Status: Normal, Stable Level of Consciousness/Mental Status: Can Participate in Eval, Alert and Oriented (patient did well with epidural, no adverse effects, no complaints.) Pain Control: Adequate, Prn Tx Ordered Nausea/Vomiting Control: Adequate, Prn Tx Ordered Complications Possibly Related to Anesthesia: None Noted
[2018-11-30] MEDS: DOCUSATE SODIUM 100 MG CAP PO PRN (08:49)
[2018-11-30 11:55] VITALS: BP 118/66
--- NOTE | 2018-11-30 11:58 | OBPP ---
Progress Note Assessment/Plan: Assessment: PPD 2 s/p VAVD Plan: d/c home 11/30/18 11:54 Subjective/ Course: 11/29/18 10:38 Pt is doing ok this am. She is very tired and having cramping but otherwise controlled with PO Ibuprofen. She is working on breast feeding. She ambulated once and had mod lochia. 11/30/18 11:55 Pt doing well. 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 urinating fine. Baby is latching well. Bottom not too sore - mild swelling. Ready for d/c. reports she slept 6 hrs last noc. Objective: 11/28/18 07:00 Patient ABO/Rh O POSITIVE 11/28/18 07:00 Temp Pulse Resp BP Pulse Ox 36.8 C 107 H 18 144/81 H 96 11/29/18 21:01 11/29/18 21:01 11/29/18 21:01 11/29/18 21:01 11/29/18 21:01 Uterine Position/Fundal Height: Umbilicus -2 Uterine Tone: Firm Physical Exam - Physical Exam Abdomen: non-tender, soft, other (FF at umb -2) Extremities: non-tender, pedal edema (minimal) Skin: normal color, warm/dry Neuro/Psych: alert, normal mood/affect
--- NOTE | 2018-11-30 12:00 | OBGCSDC ---
General Delivery Information - General Info : 1 Para: 1 Abortions: 1 Type: Vaginal L&D Analgesia/Anesthesia Type: Epidural Admission Date: 11/28/18 Labs: Patient ABO/Rh O POSITIVE 11/28/18 07:00 Hct 39.9 % (38.0-47.0) 11/28/18 07:00 - Hospital Course Antepartum: 11/28/18 11:52 initiated care at [facility] at 8 weeks. returned to [place] from 11-37 weeks. resumed care with [facility] at 37 weeks. gbs positive. desired induction for post due date. favorable cervix. Intrapartum: 11/28/18 11:51 patient is still comfortable. pitocin is at 10 mu. arom. large amount of clear fluid. status is reassuring. 11/28/18 15:07 patient had significantly increased pain with contractions after arom and tried to labor in the tub but got out after three contractions. requested nitrous and used for a few minutes but did not provide enough pain relief so requested and received an epidural. patient resting comfortably but doesnt like her legs being so numb. pitocin was decreased due to frequency of contractions. no change in cervix. discussed IUPC. patient agreeable to having placed. placed without difficulty. contractions no adequate. pitocin increased to 10 mu. will continue position changes and increasing pitocin until adequate. status reassuring. 11/28/18 17:57 patient is still comfortable. able to feel legs more. IUPC was no effectively tracing. was flushed and checked to make sure it was in the correct position. pitocin is at 18. i just examined patient who is now 5 cm/ 90/-1. positioned into hands and knees. will recheck in an hour and if no change will replace IUPC and reassess pitocin. status reassuring 11/28/18 19:15 pitocin is at 18 mu. IUPC replaced to see if difficulty tracing is related to the existing IUPC. contractions continue to be intermittently distinct and other times very flat with possible higher baseline. per rn not palpating strong. - . status reassuring. Will try flushing iupc and rezeroing. if no improvement will try external monitor and continue palpation. long discussion with patient and father of baby about monitoring contractions and risk of high dose pitocin vs lack of cervical change due to inadequate contractions. sve just done. slight cervical change. to 6/100/-1. Baby appears to be in ROT to MARIE. status reassuring. trying multiple position changes. will increase pitocin to a max of 24 with close observation and palpation of contractions. 11/28/18 21:42 patient feeling more pressure. sve per rn 8-9/100/0 multiple positions attempted. patient now in high fowlers. contractions still appear to be flattened. will try 2mg propranolol slow iv push and continued close observation. status reassuring. 11/28/18 22:27 patient feeling much more pressure. sve 9/100/0. bolus button pushed. will continue to monitor and begin pushing when complete. : 11/29/18 10:38 Pt is doing ok this am. She is very tired and having cramping but otherwise controlled with PO Ibuprofen. She is working on breast feeding. She ambulated once and had mod lochia. 11/30/18 11:55 Pt doing well. 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 urinating fine. Baby is latching well. Bottom not too sore - mild swelling. Ready for d/c. reports she slept 6 hrs last noc. Vaginal - Delivery Provider Delivery Physician/CNM: Viv Paz - Diagnosis Labor: Induced Rupture of Membranes Type: Artificial Amniotic Fluid Color: Clear Laceration: 1st Degree Repair: 3-0, Other (Specify) (right dilated vessel vs hematoma did not expand.) - Procedures Assisted Delivery Type: Vacuum Non-surgical Procedures: Amniotomy, IUPC - Delivery Non-surgical Procedures: Amniotomy, IUPC EBL: 300 Data PRACHI: 11/24/18 Gestational Age: 40 week(s) and 6 day(s) Melendez Delivery Date: 11/29/18 Delivery Time: 03:15 Sex of Infant: Male [place] Weight (gm): 3835 g Score (1 Min): 7 Score (5 Min): 9 Discharge Information - Discharge Information Condition: Good Instruction/Follow Up: See Instruction Sheet, Two Weeks (2-3 wks with therapist , 6 wks with [place])
== END 2018-11-30 16:30 | disposition home or self-care (01) | DRG 807 ==
LOC: FLD 06:25 → FOB 11-29 08:05
PROVIDERS: ADMIT Obstetrics & Gynecology; ATTEND Obstetrics & Gynecology
DX: O48.0 Post-term pregnancy (principal); Z37.0 Single live birth; O99.824 Streptococcus B carrier state complicating childbirth; Z3A.40 40 weeks gestation of pregnancy; O70.0 First degree perineal laceration during delivery; Z23 Encounter for immunization
CPT/HCPCS: G0008; J1800; J2370; J2405; J2540; J2590; J3010; J3105